=== PATIENT | male | born 1980 | race Caucasian/White ===

== ENCOUNTER 2019-05-13 05:51 | Emergency (ER) | payer BC, OTHER ==
[2019-05-13] MEDS: FLUORESCEIN STRIP LEFT EYE (06:13)
[2019-05-13] MEDS: TETRACAINE 0.5% 4 ML OPH BOTH EYES (06:13)
== END 2019-05-13 07:13 | disposition home or self-care (01) ==
LOC: FTE 07:13
DX: S05.01XA Injury of conjunctiva and corneal abrasion without foreign body, right eye, initial encounter (principal); F17.210 Nicotine dependence, cigarettes, uncomplicated; X58.XXXA Exposure to other specified factors, initial encounter; Y92.9 Unspecified place or not applicable
CPT/HCPCS: 99283

== ENCOUNTER 2019-05-19 07:17 | Emergency (ER) | payer BC ==
[2019-05-19] MEDS: TETRACAINE 0.5% 4 ML OPH RIGHT EYE (07:37)
[2019-05-19] MEDS: FLUORESCEIN STRIP RIGHT EYE (07:37)
== END 2019-05-19 08:22 | disposition home or self-care (01) ==
LOC: FTE 08:22
DX: T15.92XA Foreign body on external eye, part unspecified, left eye, initial encounter (principal); F17.210 Nicotine dependence, cigarettes, uncomplicated; X58.XXXA Exposure to other specified factors, initial encounter; Y92.9 Unspecified place or not applicable
CPT/HCPCS: 99283